=== PATIENT | female | born 2000 | race Two or more races ===

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

== ENCOUNTER 2020-04-22 13:29 | Outpatient (CLI) | payer MEDICAID ==
[2020-04-22 14:02] LABS: APPEARANCE,URINE CLEAR; BILIRUBIN,URINE NEGATIVE (NEGATIVE); COLOR,URINE YELLOW; GLUCOSE, URINE NEGATIVE (NEGATIVE); KETONES,URINE NEGATIVE (NEGATIVE); LEUKOCYTE ESTERASE,URINE NEGATIVE (NEGATIVE); NITRITE,URINE NEGATIVE (NEGATIVE); PROTEIN,URINE NEGATIVE (NEGATIVE); URINE SPECIFIC GRAVITY 1.015; UROBILINOGEN,URINE NEGATIVE mg/dL (<2.0)
[2020-04-22 14:26] LABS: URINE AMPHETAMINES SCREEN NEGATIVE; URINE BARBITURATES SCREEN NEGATIVE; URINE BENZODIAZEPINES SCREEN NEGATIVE; URINE COCAINE SCREEN NEGATIVE; URINE MARIJUANA (THC) SCREEN NEGATIVE; URINE METHADONE SCREEN NEGATIVE; URINE PHENCYCLIDINE SCREEN NEGATIVE
--- NOTE | 2020-04-22 16:38 | RADIOLOGY REPORT (SQ) ---
EXAM DESCRIPTION: U/S ABDOMEN LIMITED W/O DOP IMAGES COMPLETED DATE/TIME: 04/22/2020 4:28 pm REASON FOR STUDY: eval gall bladder and appendix COMPARISON: None. TECHNIQUE: Dynamic and static grayscale images acquired of the abdomen and recorded on PACS. Additio nal selected color Doppler and spectral images recorded. LIMITATIONS: Limited visualization. Poor acoustical window FINDINGS: PANCREAS: Not visualized. LIVER: Normal size Echo texture normal. No focal masses. LIVER VASCULATURE: Normal directional flow of the main portal vein and hepatic veins. GALLBLADDER: No stones. Normal wall thickness. No pericholecystic fluid. ULTRASOUND-DETECTED ROGERS'S SIGN: Negative. INTRAHEPATIC DUCTS AND COMMON DUCT: CBD and intrahepatic ducts normal caliber. No filling defects. INFERIOR VENA CAVA: Normal flow. AORTA: No aneurysm. RIGHT KIDNEY: Normal size. Normal echogenicity. No solid or suspicious masses. Hydronephrosis appropriate for 28 week gestation. No calcifications. PERITONEAL AND RIGHT PLEURAL SPACE: No ascites or effusions. OTHER: Appendix not visualized. IMPRESSION: NORMAL RIGHT UPPER QUADRANT ULTRASOUND VISUALIZED. TECHNICAL DOCUMENTATION: JOB ID: [id number] 2010 [employer]- All Rights Reserved Reading location - IP/workstation name: [email or web address]
[2020-04-22 16:58] LABS: ABSOLUTE EOSINOPHILS # (AUTO) 0.1 10^3/uL (0.0-0.6); ABSOLUTE LYMPHOCYTES (AUTO) 1.9 10^3/uL (0.5-4.7); ABSOLUTE MONOCYTES (AUTO) 0.6 10^3/uL (0.1-1.4); ABSOLUTE NEUT (AUTO) 7.8 10^3/uL (1.7-8.2); BASOPHILS % (AUTO) 0.2 % (0-2); EOSINOPHILS % (AUTO) 1.1 % (0-6); MEAN CORPUSCULAR HEMOGLOBIN 25.9 pg (27.0-33.4); MEAN CORPUSCULAR HGB CONC 33.4 g/dL (32.0-36.0); MEAN CORPUSCULAR VOLUME 78 fl (80-97); MONOCYTES % (AUTO) 5.6 % (3-13); PLATELET COUNT 195 10^3/uL (150-450); RED BLOOD COUNT 4.26 10^6/uL (3.72-5.28); RED CELL DISTRIBUTION WIDTH 20.8 % (11.5-14.0); SEGMENTED NEUTROPHILS % (AUTO) 75.1 % (42-78); TOTAL CELLS COUNTED % (AUTO) 100 %; WHITE BLOOD COUNT 10.4 10^3/uL (4.0-10.5)
== END 2020-04-22 17:11 | disposition home or self-care (01) ==
LOC: LC 13:29
PROVIDERS: ATTEND Obstetrics & Gynecology
DX: O26.893 Other specified pregnancy related conditions, third trimester (principal); R10.9 Unspecified abdominal pain; Z3A.28 28 weeks gestation of pregnancy
CPT/HCPCS: 36415; 76705; 80307; 81001; 85025; 87086

== ENCOUNTER 2020-06-21 22:08 | Outpatient (CLI) | payer MEDICAID ==
[2020-06-21 22:52] LABS: APPEARANCE,URINE SLIGHTLY-CLOUDY; BILIRUBIN,URINE NEGATIVE (NEGATIVE); COLOR,URINE YELLOW; GLUCOSE, URINE NEGATIVE (NEGATIVE); KETONES,URINE NEGATIVE (NEGATIVE); LEUKOCYTE ESTERASE,URINE SMALL (NEGATIVE); NITRITE,URINE NEGATIVE (NEGATIVE); PROTEIN,URINE NEGATIVE (NEGATIVE); UROBILINOGEN,URINE NEGATIVE mg/dL (<2.0)
[2020-06-21] MEDS ORDERED: HYDROXYZINE PAMOATE 50 MG CAPSULE PO ONE (22:57)
[2020-06-21] MEDS ORDERED: HYDROXYZINE PAMOATE 50 MG CAPSULE ONE (23:09)
[2020-06-21 23:12] LABS: URINE AMPHETAMINES SCREEN NEGATIVE; URINE BARBITURATES SCREEN NEGATIVE; URINE BENZODIAZEPINES SCREEN NEGATIVE; URINE COCAINE SCREEN NEGATIVE; URINE MARIJUANA (THC) SCREEN NEGATIVE; URINE METHADONE SCREEN NEGATIVE; URINE PHENCYCLIDINE SCREEN NEGATIVE
--- NOTE | 2020-06-21 23:20 | Non Stress Test Report ---
Non Stress Test Datetime Report Generated by CPN: 06/21/2020 23:20 DEMOGRAPHIC EGA NST: 36.6 INDICATION Indication for Study (NST) Other: Gestational age greater than 32 weeks VITAL SIGNS Temperature - NST: 98.3 Pulse - NST: 76 RESP - NST: 17 NBPSYS NST: 128 NBPDIA NST: 72 URINE RESULTS Urine Protein, NST: Negative Urine Ketones - NST: Negative Urine Glucose - NST: Negative Urine Blood - NST: Negative MONITORING Monitor Explained: Monitor Explained; Test Explained; Patient Verbalized Understanding Time on Monitor: 06/21/2020 22:29 Time off Monitor: 06/21/2020 23:11 NST Duration: 42 NST INTERVENTIONS NST Interventions: PO Hydration; Reposition Patient BABY A: [id number] BABY A Movement : Present Contraction Frequency : 2-6 FHR Baseline : 135 Accelerations : 15X15 Decelerations : None Variability : Moderate 6-25bpm NST Review: Meets Criteria for Reactive NST NST Review and Verified By : D Bellavance RN NST Results: Reactive NST REPORT Report Trigger: Send Report
== END 2020-06-21 23:20 | disposition home or self-care (01) ==
LOC: LC 22:08
PROVIDERS: ATTEND Obstetrics & Gynecology
DX: O47.03 False labor before 37 completed weeks of gestation, third trimester (principal); Z3A.36 36 weeks gestation of pregnancy; Z88.0 Allergy status to penicillin
CPT/HCPCS: 59025; 81005; 80307; J3490

== ENCOUNTER 2020-06-23 15:46 | Outpatient (CLI) | payer MEDICAID ==
[2020-06-23] MEDS ORDERED: RINGERS SOLUTION,LACTATED 1,000 ML IV PRN ×2 (16:14→20:15)
[2020-06-23] MEDS ORDERED: MORPHINE SULFATE 10 MG/ML INJ IV ONE (16:14)
[2020-06-23] MEDS ORDERED: RINGERS SOLUTION,LACTATED 1,000 ML IV ONE (16:14)
[2020-06-23] MEDS ORDERED: MORPHINE SULFATE 10 MG/ML INJ ONE (16:18)
[2020-06-23 16:42] LABS: APPEARANCE,URINE CLEAR; BILIRUBIN,URINE NEGATIVE (NEGATIVE); COLOR,URINE STRAW; GLUCOSE, URINE NEGATIVE (NEGATIVE); KETONES,URINE 20 mg/dL (NEGATIVE); LEUKOCYTE ESTERASE,URINE TRACE (NEGATIVE); NITRITE,URINE NEGATIVE (NEGATIVE); PROTEIN,URINE NEGATIVE (NEGATIVE); URINE SPECIFIC GRAVITY 1.003; UROBILINOGEN,URINE NEGATIVE mg/dL (<2.0)
[2020-06-23 17:07] LABS: URINE AMPHETAMINES SCREEN NEGATIVE; URINE BARBITURATES SCREEN NEGATIVE; URINE BENZODIAZEPINES SCREEN NEGATIVE; URINE COCAINE SCREEN NEGATIVE; URINE MARIJUANA (THC) SCREEN NEGATIVE; URINE METHADONE SCREEN NEGATIVE; URINE PHENCYCLIDINE SCREEN NEGATIVE
[2020-06-23] MEDS ORDERED: DEXTROSE 5%-NORMAL SALINE 500 ML IV ONE (18:34)
[2020-06-23] MEDS ORDERED: NALBUPHINE HCL INJ 10 MG/1 ML AMPULE IV ONE (20:20)
[2020-06-23] MEDS ORDERED: PROMETHAZINE HCL INJ 25 MG/1 ML VIAL IV ONE (20:20)
[2020-06-23] MEDS ORDERED: PROMETHAZINE HCL INJ 25 MG/1 ML VIAL ONE (20:21)
[2020-06-23] MEDS ORDERED: NALBUPHINE HCL INJ 10 MG/1 ML AMPULE ONE (20:21)
[2020-06-23] MEDS ORDERED: HYDROXYZINE PAMOATE 50 MG CAPSULE ONE (23:06)
[2020-06-23] MEDS ORDERED: HYDROXYZINE PAMOATE 50 MG CAPSULE PO ONE (23:06)
--- NOTE | 2020-06-23 23:36 | Non Stress Test Report ---
Non Stress Test Datetime Report Generated by CPN: 06/23/2020 23:35 DEMOGRAPHIC EGA NST: 37.1 INDICATION Indication for Study (NST) Other: lc VITAL SIGNS Temperature - NST: 98.3 Pulse - NST: 91 RESP - NST: 17 NBPSYS NST: 134 NBPDIA NST: 83 MONITORING Monitor Explained: Monitor Explained; Test Explained; Patient Verbalized Understanding Time on Monitor: 06/23/2020 20:24 Time off Monitor: 06/23/2020 23:12 NST Duration: 168 NST INTERVENTIONS NST Interventions: PO Hydration; Reposition Patient Physician Notified NST: Dr Arora BABY A: [id number] BABY A Movement : Present Contraction Frequency : 5-6 FHR Baseline : 145 Accelerations : 15X15 Decelerations : None Variability : Moderate 6-25bpm NST Review: Meets Criteria for Reactive NST NST Review and Verified By : ELIE Oquendo Results: Reactive NST REPORT Report Trigger: Send Report
== END 2020-06-23 23:24 | disposition home or self-care (01) ==
LOC: LC 15:46
PROVIDERS: ATTEND Obstetrics & Gynecology
DX: O47.1 False labor at or after 37 completed weeks of gestation (principal); Z3A.37 37 weeks gestation of pregnancy
CPT/HCPCS: 81005; 80307; 84112; 59025; J2270; J2300; J2550

== ENCOUNTER 2020-06-24 02:58 | Outpatient (CLI) | payer MEDICAID ==
[2020-06-24] MEDS ORDERED: DOCUSATE SODIUM 100 MG CAPSULE PO ONE (03:56)
[2020-06-24] MEDS ORDERED: DOCUSATE SODIUM 100 MG CAPSULE ONE (04:01)
[2020-06-24] MEDS ORDERED: HYDROXYZINE PAMOATE 50 MG CAPSULE PO ONE (04:01)
[2020-06-24] MEDS ORDERED: HYDROXYZINE PAMOATE 50 MG CAPSULE ONE (04:01)
[2020-06-24 04:20] LABS: ABSOLUTE MONOCYTES (AUTO) 0.5 10^3/uL (0.1-1.4); ABSOLUTE NEUT (AUTO) 13.4 10^3/uL (1.7-8.2); BASOPHILS % (AUTO) 0.2 % (0-2); HEMATOCRIT 33.4 % (36.0-47.0); HEMOGLOBIN 11.8 g/dL (12.0-15.5); LYMPHOCYTES % (AUTO) 6.8 % (13-45); MEAN CORPUSCULAR HEMOGLOBIN 28.3 pg (27.0-33.4); MEAN CORPUSCULAR HGB CONC 35.3 g/dL (32.0-36.0); MEAN CORPUSCULAR VOLUME 80 fl (80-97); MONOCYTES % (AUTO) 3.1 % (3-13); PLATELET COUNT 166 10^3/uL (150-450); RED BLOOD COUNT 4.16 10^6/uL (3.72-5.28); RED CELL DISTRIBUTION WIDTH 15.2 % (11.5-14.0); SEGMENTED NEUTROPHILS % (AUTO) 89.9 % (42-78); TOTAL CELLS COUNTED % (AUTO) 100 %; WHITE BLOOD COUNT 14.9 10^3/uL (4.0-10.5)
[2020-06-24 04:32] LABS: INTERNATIONAL RATION (INR) 1.03; PROTHROMBIN TIME 13.7 SEC (11.4-15.4)
[2020-06-24 04:33] LABS: FIBRINOGEN 537 mg/dL (209-497)
[2020-06-24 04:38] LABS: ALBUMIN 3.9 g/dL (3.5-5.0); ALKALINE PHOSPHATASE 134 U/L (38-126); ANION GAP 12 (5-19); ASPARTATE AMINO TRANSFERASE 21 U/L (14-36); BILIRUBIN,DIRECT 0.3 mg/dL (0.0-0.4); BILIRUBIN,TOTAL 0.6 mg/dL (0.2-1.3); BLOOD UREA NITROGEN 3 mg/dL (7-20); CALCIUM 9.5 mg/dL (8.4-10.2); CARBON DIOXIDE 19 mmol/L (22-30); CHLORIDE 106 mmol/L (98-107); GLUCOSE 118 mg/dL (75-110); POTASSIUM 3.6 mmol/L (3.6-5.0); TOTAL PROTEIN 6.8 g/dL (6.3-8.2)
--- NOTE | 2020-06-24 05:23 | Non Stress Test Report ---
Non Stress Test Datetime Report Generated by CPN: 06/24/2020 05:22 DEMOGRAPHIC EGA NST: 37.2 INDICATION Indication for Study (NST) Other: Gestsational age greater than 32 weeks VITAL SIGNS Temperature - NST: 98.4 Pulse - NST: 85 RESP - NST: 17 NBPSYS NST: 137 NBPDIA NST: 68 MONITORING Monitor Explained: Monitor Explained; Test Explained; Patient Verbalized Understanding Time on Monitor: 06/24/2020 03:08 Time off Monitor: 06/24/2020 04:55 NST Duration: 107 NST INTERVENTIONS NST Interventions: PO Hydration; Reposition Patient BABY A Movement : Present Contraction Frequency : irregular FHR Baseline : 145 Accelerations : 15X15 Decelerations : None Variability : Moderate 6-25bpm NST Review: Meets Criteria for Reactive NST NST Review and Verified By : Anita Ruiz RN NST Results: Reactive NST REPORT Report Trigger: Send Report
== END 2020-06-24 05:13 | disposition home or self-care (01) ==
LOC: LC 02:58
PROVIDERS: ATTEND Obstetrics & Gynecology
DX: O47.1 False labor at or after 37 completed weeks of gestation (principal); Z3A.37 37 weeks gestation of pregnancy; Z88.0 Allergy status to penicillin
CPT/HCPCS: 59025; 36415; 85025; 85384; 85610; 85730; 80053; J3490 ×2

== ENCOUNTER 2020-06-24 09:24 | Inpatient (IN) | payer MEDICAID ==
[2020-06-24] MEDS ORDERED: RINGERS SOLUTION,LACTATED 1,000 ML IV PRN (09:43)
[2020-06-24] MEDS ORDERED: RINGERS SOLUTION,LACTATED 1,000 ML IV ONE (09:43)
[2020-06-24] MEDS ORDERED: OXYTOCIN/0.9 % SODIUM CHLORIDE 30 UNIT/500 ML RTUINJ ONE (09:52)
[2020-06-24] MEDS ORDERED: LIDOCAINE 1% INJ-PF (10 MG/ML) 30 ML SDV ONE (09:52)
[2020-06-24] MEDS ORDERED: MISOPROSTOL 0.2 MG TABLET ONE (09:52)
[2020-06-24] MEDS ORDERED: OXYTOCIN 10 UNIT/ML VIAL ONE (09:52)
[2020-06-24] MEDS ORDERED: EPHEDRINE SULFATE INJ 50 MG/1 ML AMPULE ONE (10:12)
[2020-06-24] MEDS ORDERED: FENTANYL/BUPIVACAINE/NS/PF 300 MCG/150 ML RTUINJ EPI ONE (10:12)
[2020-06-24] MEDS ORDERED: ROPIVACAINE HCL 0.2% INJ/PF (2 MG/ML) 20 ML SDV ONE (10:12)
[2020-06-24 10:43] LABS: ABSOLUTE LYMPHOCYTES (AUTO) 0.9 10^3/uL (0.5-4.7); ABSOLUTE MONOCYTES (AUTO) 0.4 10^3/uL (0.1-1.4); BASOPHILS % (AUTO) 0.1 % (0-2); HEMATOCRIT 32.2 % (36.0-47.0); HEMOGLOBIN 11.2 g/dL (12.0-15.5); LYMPHOCYTES % (AUTO) 5.3 % (13-45); MEAN CORPUSCULAR HGB CONC 34.7 g/dL (32.0-36.0); MEAN CORPUSCULAR VOLUME 81 fl (80-97); MONOCYTES % (AUTO) 2.2 % (3-13); PLATELET COUNT 166 10^3/uL (150-450); RED BLOOD COUNT 3.99 10^6/uL (3.72-5.28); RED CELL DISTRIBUTION WIDTH 14.8 % (11.5-14.0); SEGMENTED NEUTROPHILS % (AUTO) 92.4 % (42-78); TOTAL CELLS COUNTED % (AUTO) 100 %; WHITE BLOOD COUNT 16.2 10^3/uL (4.0-10.5)
--- NOTE | 2020-06-24 11:45 | Admission Physical ---
Datetime Report Generated by CPN: 06/24/2020 11:45 CURRENT ADMISSION Chief Complaint: Uterine Contractions Indication for Induction: Not Applicable Admit Impression : Term, Intrauterine Admit Plan: Admit to Unit; Initiate Labor Protocol ALLERGIES Medication Allergies: No Medication Allergies: Penicillins/Hives (06/24/2020); shellfish derived (06/23/2020) Latex: Unknown Environmental Allergies: none OBSTETRICAL HISTORY EDC: 07/13/2020 00:00 : 1 Para: 0 Term: 0 : 0 SAB: 0 IAB: 0 Ectopic: 0 Livin Cesareans: 0 VBACs: 0 Multiple Births: 0 Gestational Diabetes: No Rh Sensitization: No Incompetent Cervix: No MARK: No Infertility: No ART Treatment: No Uterine Anomaly: No IUGR: No Hx Previous C/S: No Macrosomia: No Hx Loss/Stillborn: No PIH: No Hx : No Placenta Previa/Abruption: No Depression/PP Depression: No PTL/PROM: No Post Hemorrhage: No Current Procedures: Ultrasound; NST Obstetrical History Comments: G1- Current SEE RECORDS Alcohol: No Marijuana : No Cocaine: No Other Illicit Drugs: No Cigarettes: Never Smoker. [id number] MEDICAL HISTORY Diabetes: No Blood Transfusion: No Pulmonary Disease (Asthma, TB): Yes Breast Disease: No Hypertension: No Screen Making Supervisor Surgery: No Heart Disease: No Hosp/Surgery: Yes Autoimmune Disorder: No Anesthetic Complications: No Kidney Disease: No Abnormal Pap Smear: No Neuro/Epilepsy: No Psychiatric Disorders: No Other Medical Diseases: No Hepatitis/Liver Disease: No Significant Family History: No Varicosities/Phlebitis: No Trauma/Violence : No Thyroid Dysfunction: Yes Medical History Comments: low thyroid (not on meds), asthma (seasonal, has inhaler) INFECTIOUS HISTORY Gonorrhea: No Genital Herpes: No Chlamydia: No Tuberculosis: No Syphilis: No Hepatitis: No HIV/AIDS Exposure: No Rash or Viral Illness: No HPV: No PHYSICAL EXAM General: Normal HEENT: Normal Neurologic: Normal Thyroid: Normal Heart: Normal Lungs: Normal Breast: Deferred Back: Normal Abdomen: Normal Genitourinary Exam: Normal Extremities: Normal DTRs: Normal Pelvic Type: Adequate FETUS A EGA: 37.2 PLANS FOR LABOR AND DELIVERY Labor and Delivery: None Pain Management: Epidural Feeding Preference: Breast Benefit of Breast Feed Discussed: Yes Circumcision: Yes INFORMED CONSENT Signature: with User ID: [email or web address]
--- NOTE | 2020-06-24 13:19 | Birth Certificate Data ---
Cert Data Datetime Report Generated by JOHNNA: 06/24/2020 13:19 CERTIFICATE DATA 47a. Care: Yes (04/22/2020 13:49:Gino Ventura RN) 47b. Date of First Visit: 01/07/2020 00:00 (04/22/2020 13:49:Shayna Vergara RN) 47c. Date of Last Visit: 06/18/2020 00:00 (04/22/2020 13:49:Shayna Vergara RN) 47d. Number of Visits: 8 (04/22/2020 13:49:Shayna Vergara RN) 48a. Number of Prev Live Births: 0 (04/22/2020 13:49:Gino Ventura RN) 48b. Now Livin (04/22/2020 13:49:Aliza Ortiz RN) 48c. Live Births Now : 0 (04/22/2020 13:49:QS system process) 48e. Losses: 0 (04/22/2020 13:49:Gino Ventura RN) RISK FACTORS IN THIS 49a. Diabetes: No (04/22/2020 13:49:Gino Ventura RN) 49b. Hypertension: No (04/22/2020 13:49:Gino Ventura RN) 49c. Previous Births: 0 (04/22/2020 13:49:Aliza Ortiz RN) 49d. Stillborns: No (04/22/2020 13:49:Gino Ventura RN) 49d. IUGR: No (04/22/2020 13:49:Gino Ventura RN) 49e. Infertility Treatment: No (04/22/2020 13:49:Gino Ventura RN) 49f. Previous Cesareans: 0 (04/22/2020 13:49:Gino Ventura RN) Mother's Height 50b. Height Inches: 64 (06/24/2020 10:52:QS system process) Mother's Weight 51a. Pre- Weight (lbs): 240 (04/22/2020 13:49:Gino Ventura RN) 51b. Weight at Delivery (lbs): 249 (06/24/2020 10:52:QS system process) 52. Dt Last Normal Menses Began: 10/07/2019 00:00 (04/22/2020 13:49:Shayna Vergara RN) Infections Present/Treated 53a. Gonorrhea: No (04/22/2020 13:49:Gino Ventura RN) Results this Hospital Visit : Negative (04/22/2020 13:49:Shayna Vergara RN) 53b. Syphilis: No (04/22/2020 13:49:Gino Ventura RN) 53c. Chlamydia: No (04/22/2020 13:49:Gino Ventura RN) Results this Hospital Visit: Negative (04/22/2020 13:49:Shayna Vergara RN) 53d. Hepatitis B: No (04/22/2020 13:49:Gino Ventura RN) Results this Hospital Visit: Negative (04/22/2020 13:49:Shayna Vergara RN) 53e. Hepatitis C: Negative (04/22/2020 13:49:Shayna Vergara RN) 53h. Mother Tested for HBsAG: Yes (04/22/2020 13:49:Shayna Vergara RN) 53i. Date Tested: 01/07/2020 00:00 (04/22/2020 13:49:Shayna Vergara RN) 53j. Test Result: Negative (04/22/2020 13:49:Shayna Vergara RN) Obstetric Procedures 54a, b, c. Obstetric Procedures: Ultrasound; NST (04/22/2020 13:49:Gino Ventura RN) Cigarette Smoking Cigarette Smoking: Never Smoker. [id number] (04/22/2020 13:49:Gino Ventura RN) 55a. 3 Months Before Preg - Ci (04/22/2020 13:49:Gino Ventura RN) 55a. Packs: 0 (04/22/2020 13:49:Gino Ventura RN) 55b. 1st Trimester of Preg- Ci (04/22/2020 13:49:Gino Ventura RN) 55b. Packs: 0 (04/22/2020 13:49:Gino Ventura RN) 55c. 2nd Trimester of Preg- Ci (04/22/2020 13:49:Gino Ventura RN) 55c. Packs: 0 (04/22/2020 13:49:Gino Ventura RN) 55d. 3rd Trimester of Preg- Ci (04/22/2020 13:49:Gino Ventura RN) 55d. Packs: 0 (04/22/2020 13:49:Gino Ventura RN) Onset of Labor 56a. PROM >12 Hrs: 3.62 (06/24/2020 10:30:QS system process) 56b. Precipitous Labor <3 Hrs: 2 (04/22/2020 13:49:QS system process) 56c. Prolonged Labor > 20 Hrs: 2 (04/22/2020 13:49:QS system process) 57a. Induction of Labor: N/A (04/22/2020 13:49:Carline Palencia RN) 57a. Induction of Labor: N/A (04/22/2020 13:49:Carline Palencia RN) 57c. Non-Vertex Presentation A: Vertex (04/22/2020 13:49:Morenita Schrader RN) 57d. Steroids - Lung Mat: None (04/22/2020 13:49:Carline Palencia RN) 57d. Steroids - Lung Mat: Not Applicable (04/22/2020 13:49:Carline Palencia RN) 57g. Moderate/Heavy Meconium: Clear (06/24/2020 10:30:Carline Palencia RN) 57i. Epidural/Spinal Anesthesia: Epidural (04/22/2020 13:49:Carline Palencia RN) Method of Delivery 58a. Forceps - Unsuccessful A: N/A (04/22/2020 13:49:Carline Palencia RN) 58b. Vacuum - Unsuccessful A: N/A (04/22/2020 13:49:Carline Palencia RN) 58c. Presentation at 58c. Presentation at - A : Vertex (04/22/2020 13:49:Morenita Schrader RN) 58c. Presentation at - A : N/A (04/22/2020 13:49:Morenita Schrader RN) 58c. Presentation at - A : Cephalic (06/24/2020 09:43:Carline Palencia RN) Final Route and Method of Del 58d. Baby A Route/Delivery: Vaginal (04/22/2020 13:49:Carline Palencia RN) 58e. Trial of Labor Attempted: No (04/22/2020 13:49:Carline Palencia RN) 58e. Trial of Labor Attempted A: N/A (04/22/2020 13:49:Carline Palencia RN) 58e. Trial of Labor Attempted B: N/A (04/22/2020 13:49:Carline Palencia RN) Maternal Morbidity 59b. 3rd or 4th Degree Lacs: Vaginal (04/22/2020 13:49:Suzanne Acosta, CNM) Birthweight Baby A: 3198 (04/22/2020 13:49:Carline Palencia RN) 60a. Pounds : 7 (04/22/2020 13:49:QS system process) 60b. Ounces: 1 (04/22/2020 13:49:QS system process) 61. GA at Delivery Baby A: 37.2 (04/22/2020 13:49:Morenita Schrader RN) : Early Term- 37- 38.6 Weeks (04/22/2020 13:49:QS system process) 62a. 5 Minute Baby A: 9 (04/22/2020 13:49:QS system process)
--- NOTE | 2020-06-24 13:19 | Delivery Summary ---
Del Sum A-C Datetime Report Generated by CPN: 06/24/2020 13:19 DELIVERY PERSONNEL DELIVERY PERSONNEL: [id number] Delivery Doctor:: Suzanne Acosta CNM Labor and Delivery Nurse:: Carline Palencia RNgas prover Nurse:: NEHA Weinberg Environmental Health Nurse/SOFTWARE PRODUCT SPECIALIST: Phuong Norman, PROFESSOR OF BUSINESS ADMINISTRATION MATERNAL INFORMATION Delivery Anesthesia: Local; Epidural Medications After Delivery: Pitocin 30 Units in 500ml NS/D5W Delivery QBL: 400 Delivery QBL Comment: 400 Maternal Complications: None Provider Comments: SVDVM over intact perineum. ALVARO, shoulders and body delivered easily. vigorous to mothers abd. Cord doubly clamped and cut per FOB. 3VC noted. Placenta spont via Acosta. Bleeding stabilized. Laceration repair as above. LABOR SUMMARY EDC: 07/13/2020 00:00 No. Babies in Womb: 1 Attempted: No Labor Anesthesia: Epidural LABOR INFORMATION Reason for Induction: Not Applicable Onset of Labor: 06/24/2020 09:28 Other Ripening Agents: N/A Oxytocin: N/A Group B Beta Strep: Negative Antibiotics # of Doses: 0 Name of Antibiotic Given: N/A Steroids Given: None Reason Steroids Not Administered: Not Applicable MEMBRANES Membranes Rupture Method: Spontaneous Rupture of Membranes: 06/24/2020 08:30 Length of Rupture (hr): 3.62 Amniotic Fluid Color: Clear Amniotic Fluid Amount: Small Amniotic Fluid Odor: Normal STAGES OF LABOR Stage 3 hr: 0 Stage 3 min: 3 Total Time in Labor hr: 2 Total Time in Labor min: 42 VAGINAL DELIVERY Laceration #1: Vaginal Laceration Extension #1: First Degree Laceration #2: Periurethral Laceration Extension #2: First Degree Laceration Repair: Yes Laceration Repair Note: repaired with Chromic BABY A INFORMATION Infant Delivery Date/Time: 06/24/2020 12:07 Method of Delivery: Vaginal Born in Route : No : N/A Forceps: N/A Vacuum Extraction: N/A Shoulder Dystocia : No PRESENTATION/POSITION BABY A Presentation: Cephalic Cephalic Presentation: Vertex Vertex Position: Left Occipital Anterior Breech Presentation: N/A PLACENTA INFORMATION BABY A Placenta Delivery Time : 06/24/2020 12:10 Placenta Method of Delivery: Spontaneous Placenta Status: Delivered SCORES BABY A Heart Rate 1 min: >100 bpm Resp Effort 1 min: Good Cry Reflex Irritability 1 min: Cough or Sneeze or Pulls Away Muscle Tone 1 min: Active Motion Color 1 min: Body [place], Extremities Blue Resuscitation Effort 1 min: Tactile Stimulation SCORE 1 MIN: 9 Heart Rate 5 min: >100 bpm Resp Effort 5 min: Good Cry Reflex Irritability 5 min: Cough or Sneeze or Pulls Away Muscle Tone 5 min: Active Motion Color 5 min: Body [place], Extremities Blue SCORE 5 MIN: 9 INFORMATION BABY A Gestational Age at Delivery: 37.2 Gestational Status: Early Term- 37- 38.6 Weeks Infant Outcome : Liveborn Condition : Stable Infant Sex: Male IDENTIFICATION BABY A Verification Date/Time: 06/24/2020 12:40 ID Band Number: [id number] Mother's Name Verified: Yes Infant RN Verifying Infant: JersonSravan Palencia RN Additional Verifying Personnel: Jody Joy RN WEIGHT/LENGTH BABY A Infant Birthweight (gm): 3198 Weight (lb): 7 Infant Weight (oz): 1 Length (in): 20.00 Length (cm): 50.80 CORD INFORMATION BABY A No. Cord Vessels: 3 Nuchal Cord : N/A Cord Blood Taken: Yes-For Eval (Mom's Blood Type - or O+) Infant Suction: Mouth ASSESSMENT BABY A Complications: None Physical Findings at Delivery: Molding of the Head Infant Respirations: Appears Normal Skin to Skin: Yes Skin to Skin Time (min): 5 Leases And Land Supervisor/ALS Called : No Care By: april Transferred To: Remains with Mother BABY B INFORMATION : N/A SIGNATURES Assignment: Santos De La Torre MD Signature: with User ID: [email or web address] : with User ID: [email or web address] : I was personally available for consultation and serving as supervising physician for the P.
[2020-06-24] MEDS ORDERED: DIPHENHYDRAMINE HCL 25 MG CAPSULE PO PRN (13:53)
[2020-06-24] MEDS ORDERED: OXYTOCIN/0.9 % SODIUM CHLORIDE 30 UNIT/500 ML RTUINJ IV PRN (13:53)
[2020-06-24] MEDS ORDERED: PROMETHAZINE HCL INJ 25 MG/1 ML VIAL IV PRN (13:53)
[2020-06-24] MEDS ORDERED: PSEUDOEPHEDRINE HCL 30 MG TABLET PO PRN (13:53)
[2020-06-24] MEDS ORDERED: GLYCERIN/WITCH HAZEL LEAF 1 EACH MED..WIPE TP PRN (13:53)
[2020-06-24] MEDS ORDERED: ACETAMINOPHEN 650 MG SUPP.RECT PR PRN (13:53)
[2020-06-24] MEDS ORDERED: ACETAMINOPHEN WITH CODEINE #3 TABLET PO PRN (13:53)
[2020-06-24] MEDS ORDERED: ZOLPIDEM TARTRATE 5 MG TABLET PO PRN (13:53)
[2020-06-24] MEDS ORDERED: PROMETHAZINE HCL 25 MG SUPP.RECT PR PRN (13:53)
[2020-06-24] MEDS ORDERED: DIPH/PERTUSS(ACELL)/TETANUS VAC/PF 0.5 ML SYR (>=10YO) IM PRN (13:53)
[2020-06-24] MEDS ORDERED: MAGNESIUM HYDROXIDE SUSP 30 ML UDCUP PO PRN (13:53)
[2020-06-24] MEDS ORDERED: PROMETHAZINE HCL 25 MG TABLET PO PRN (13:53)
[2020-06-24] MEDS ORDERED: BENZOCAINE/MENTHOL AEROSOL SPRAY 56 ML TOP PRN (13:53)
[2020-06-24] MEDS ORDERED: NA PHOS,M-B/NA PHOS,DI-BA (ADULT) 133 ML ENEMA PR PRN (13:53)
[2020-06-24] MEDS ORDERED: DIBUCAINE 1% OINTMENT 28 GM TP PRN (13:53)
[2020-06-24] MEDS ORDERED: MEASLES,MUMPS&RUBELLA VACC/PF 0.5 ML VIAL SUBCUT PRN (13:53)
[2020-06-24] MEDS ORDERED: IBUPROFEN 800 MG TABLET ONE (14:24)
[2020-06-24] MEDS: IBUPROFEN 800 MG TABLET PO SCH ×2 (14:29→21:51)
[2020-06-24] MEDS: DOCUSATE SODIUM 100 MG CAPSULE PO SCH (18:43)
[2020-06-24] MEDS: FERROUS SULFATE 325 MG TABLET PO SCH (18:43)
[2020-06-24] MEDS: FAMOTIDINE 20 MG TABLET PO SCH (21:51)
[2020-06-25 06:49] LABS: HEMATOCRIT 28.5 % (36.0-47.0); MEAN CORPUSCULAR HGB CONC 35.1 g/dL (32.0-36.0); MEAN CORPUSCULAR VOLUME 82 fl (80-97); PLATELET COUNT 165 10^3/uL (150-450); RED BLOOD COUNT 3.46 10^6/uL (3.72-5.28); RED CELL DISTRIBUTION WIDTH 15.2 % (11.5-14.0); WHITE BLOOD COUNT 13.4 10^3/uL (4.0-10.5)
[2020-06-25] MEDS: ACETAMINOPHEN WITH CODEINE #3 TABLET PO PRN ×2 (07:48→13:37)
[2020-06-25] MEDS: IBUPROFEN 800 MG TABLET PO SCH ×3 (08:39→22:10)
[2020-06-25] MEDS: PRENATAL VITAMIN W DHA CAPSULE PO SCH (09:33)
[2020-06-25] MEDS: DOCUSATE SODIUM 100 MG CAPSULE PO SCH ×2 (09:33→18:07)
[2020-06-25] MEDS: FAMOTIDINE 20 MG TABLET PO SCH ×2 (09:33→22:11)
[2020-06-25] MEDS: SENNOSIDES/DOCUSATE 8.6-50 MG 1 EACH TABLET PO SCH (09:33)
[2020-06-25] MEDS: FERROUS SULFATE 325 MG TABLET PO SCH ×2 (09:33→18:07)
--- NOTE | 2020-06-25 12:57 | PDOC PROGRESS REPORT ---
Subjective-OB Progress Note for:: 06/25/20 Subjective: reports bleeding slowing, pain controlled with current meds. denies needs Physical Exam (OB) Vital Signs: Temp Pulse Resp BP Pulse Ox 97.7 F 77 19 124/83 99 06/25/20 08:34 06/25/20 08:34 06/25/20 08:34 06/25/20 08:34 06/25/20 08:34 Intake & Output 06/24/20 06/25/20 06/26/20 06:59 06:59 06:59 Intake Total 120 Output Total 625 Balance -625 120 Weight 112.5 kg - Maternal Morbidity 59. Maternal Morbidity (serious complications experinced by the mother associated with labor and delivery: None of the above - Abdomen Description: Soft, Round Hernia Present: No Fundal Description: Firm Fundal Height: u/u - u/2 - Abdominal Distension: No distension Tenderness: Nontender - Extremities Lower extremities: Marlene's sign - neg Calf: Normal, Nontender Objective-Diagnostic Laboratory: 06/25/20 06:28 06/25/20 06:28 WBC 13.4 H RBC 3.46 L Hgb 10.0 L Hct 28.5 L MCV 82 MCH 29.0 MCHC 35.1 RDW 15.2 H Plt Count 165 Assessment and Plan(PN) - Assessment and Plan (1) Active labor at term Is this a current diagnosis for this admission?: Yes (2) Laceration, obstetrical, first degree Is this a current diagnosis for this admission?: Yes (3) Vaginal delivery Is this a current diagnosis for this admission?: Yes - Time Spent with Patient Time with patient: Less than 15 minutes Medications reviewed and adjusted accordingly: Yes - Disposition Anticipated Discharge Disposition: Home, Self Care Anticipated Discharge Timeframe: within 24 hours
[2020-06-26] MEDS: IBUPROFEN 800 MG TABLET PO SCH (06:04)
[2020-06-26] MEDS: DOCUSATE SODIUM 100 MG CAPSULE PO SCH (10:31)
[2020-06-26] MEDS: SENNOSIDES/DOCUSATE 8.6-50 MG 1 EACH TABLET PO SCH (10:31)
[2020-06-26] MEDS: FAMOTIDINE 20 MG TABLET PO SCH (10:31)
[2020-06-26] MEDS: PRENATAL VITAMIN W DHA CAPSULE PO SCH (10:31)
[2020-06-26] MEDS: FERROUS SULFATE 325 MG TABLET PO SCH (10:31)
--- NOTE | 2020-06-26 10:45 | PDOC DISCHARGE SUMMARY ---
Impression - Admit/DC Date/PCP Admission Date/Primary Care Provider: 06/24/20 09:49 MAX CRAFT MD Discharge Date: 06/26/20 - Discharge Diagnosis (1) Active labor at term Is this a current diagnosis for this admission?: Yes (2) Laceration, obstetrical, first degree Is this a current diagnosis for this admission?: Yes (3) Vaginal delivery Is this a current diagnosis for this admission?: Yes - Additional Information Discharge Diet: Regular Discharge Activity: Balance Activity w/Rest, Pelvic Rest Referrals: MAX CRAFT MD [Primary Care Provider] - Prescriptions: Ibuprofen [Motrin 800 mg Tablet] 800 mg PO Q8HP PRN #60 tablet PRN Reason: Home Medications: Albuterol Sulfate [Albuterol Sulfate Hfa] 1 - 2 puff IH Q4 PRN 01/22/14 Pnv 102/Iron/Folate 1/Dss/Dha [Vitafol Fe+ Docusate Combo Pck] 1 each PO DAILY 06/24/20 Ibuprofen [Motrin 800 mg Tablet] 800 mg PO Q8HP PRN #60 tablet 06/26/20 Hospital Course 59. Maternal Morbidity (serious complications experinced by the mother associated with labor and delivery: None of the above Results Laboratory Results: WBC 13.4 10^3/uL (4.0-10.5) H 06/25/20 06:28 RBC 3.46 10^6/uL (3.72-5.28) L 06/25/20 06:28 Hgb 10.0 g/dL (12.0-15.5) L 06/25/20 06:28 Hct 28.5 % (36.0-47.0) L 06/25/20 06:28 MCV 82 fl (80-97) 06/25/20 06:28 MCH 29.0 pg (27.0-33.4) 06/25/20 06:28 MCHC 35.1 g/dL (32.0-36.0) 06/25/20 06:28 RDW 15.2 % (11.5-14.0) H 06/25/20 06:28 Plt Count 165 10^3/uL (150-450) 06/25/20 06:28 Lymph % (Auto) 5.3 % (13-45) L 06/24/20 10:16 [place] % (Auto) 2.2 % (3-13) L 06/24/20 10:16 Eos % (Auto) 0.0 % (0-6) 06/24/20 10:16 Baso % (Auto) 0.1 % (0-2) 06/24/20 10:16 Absolute Neuts (auto) 15.0 10^3/uL (1.7-8.2) H 06/24/20 10:16 Absolute Lymphs (auto) 0.9 10^3/uL (0.5-4.7) 06/24/20 10:16 Absolute Monos (auto) 0.4 10^3/uL (0.1-1.4) 06/24/20 10:16 Absolute Eos (auto) 0.0 10^3/uL (0.0-0.6) 06/24/20 10:16 Absolute Basos (auto) 0.0 10^3/uL (0.0-0.2) 06/24/20 10:16 Seg Neutrophils % 92.4 % (42-78) H 06/24/20 10:16 RPR NONREACTIVE (NONREACTIVE) 06/24/20 10:16 Blood Type O POSITIVE 06/24/20 10:16 Antibody Screen NEGATIVE 06/24/20 10:16 Plan Plan of Treatment: follow up in [address] [facility] [place] for post check
[2020-06-26 12:51] VITALS: BP 124/83
== END 2020-06-26 13:17 | disposition home or self-care (01) | DRG 807 ==
LOC: LC 09:24 → LR 09:49 → 2S 15:44
PROVIDERS: ADMIT Obstetrics & Gynecology Gynecology; ATTEND Obstetrics & Gynecology Gynecology
PROC: 10E0XZZ Delivery of Products of Conception, External Approach (ICD-10-PCS; principal; 2020-06-24)
PROC: 0UQMXZZ Repair Vulva, External Approach (ICD-10-PCS; 2020-06-24)
PROC: 0HQ9XZZ Repair Perineum Skin, External Approach (ICD-10-PCS; 2020-06-24)
DX: O70.0 First degree perineal laceration during delivery (principal); Z37.0 Single live birth; O71.82 Other specified trauma to perineum and vulva; O99.52 Diseases of the respiratory system complicating childbirth; J45.909 Unspecified asthma, uncomplicated; Z79.51 Long term (current) use of inhaled steroids; Z91.013 Allergy to seafood; Z88.0 Allergy status to penicillin; Z3A.37 37 weeks gestation of pregnancy
CPT/HCPCS: 1967; 36415; 85027; 86592; 86850; 86900; 86901; 94760; J2590; J2795; J3010; J3490